=== PATIENT | male | born 1970 | race Caucasian/White ===

== ENCOUNTER 2023-07-03 07:45 | Emergency (ER) | payer MEDICAID, SELFPAY ==
[2023-07-03 07:46] VITALS: BP 138/99; PULSE 64; RESP 16; TEMP 36.6; O2SAT 98; BMI 29.6
--- NOTE | 2023-07-03 07:49 | EKG12_ITS ---
Test Reason : CP Blood Pressure : / mmHG Vent. Rate : 063 BPM Atrial Rate : 063 BPM P-R Int : 182 ms QRS Dur : 084 ms QT Int : 402 ms P-R-T Axes : 059 024 029 degrees QTc Int : 411 ms Poor data quality, interpretation may be adversely affected Normal sinus rhythm Normal ECG Confirmed by MILLICENT STEELE, ANA PAULA ([id number]), film editor supervisor TOM DEL VALLE ([id number]) on 07/04/2023 9:55:54 AM Referred By: CLARISSE Confirmed By:ANA PAULA RICKS MD
--- NOTE | 2023-07-03 08:00 | RAD_ITS ---
STUDY: X-RAY CHEST REASON FOR EXAM: Male, 52 years old. Right-sided chest pain with pleuritic component TECHNIQUE: PA and lateral views of the chest. COMPARISON: None. FINDINGS: EKG electrodes are seen. There is hyperinflation of the lungs consistent with chronic obstructive lung disease (COPD). There is no demonstrated pleural abnormality. Normal size heart. Normal mediastinum and steve. Normal visualized pulmonary arteries. Normal visualized aortic arch and descending thoracic aorta. Normal visualized thoracic spine. Normal visualized ribs, clavicles, and shoulders. There is no demonstrated abnormality of the visualized soft tissue structures of the upper abdomen. RAD/Chest PA and Lateral IMPRESSION: Hyperinflation. The lungs are clear. Electronically Signed: Scott Arana MD at 8:24 EDT ,
[2023-07-03 08:04] LABS: Absolute Lymphocyte Count 2.35 X10^3/uL (0.83-4.51); Absolute Neutrophil Count 3.7 X10^3/uL (2.0-7.7); Basophil# 0.05 X10^3/uL; Basophil% 0.7 % (0-1); Eosinophil# 0.28 X10^3/uL; Hemoglobin 14.5 g/dL (13.0-16.5); Lymphocyte # 2.35 X10^3/ul (0.83-4.51); Lymphocyte % 33.3 % (19-41); Mean Corp Hgb Conc 33.7 g/dL (32-36); Mean Corpuscular Hgb 31.5 pg (27.0-32.0); Mean Corpuscular Volume 93.5 fL (80-94); Mean Platelet Vol. 10.5 fl (6.2-12.0); Monocyte# 0.67 X10^3/uL; Monocyte% 9.5 % (0-10); NRBC Flagged by Analyzer 0 % (0-5); Neutrophil # 3.68 X10^3/uL (2.7-7.7); Neutrophil % 52.2 % (47-70); Platelet Count 210 K/mm3 (150-450); RBC Distribution Width CV 12.9 % (11.6-14.6); White Blood Count 7.1 K/mm3 (4.4-11.0)
[2023-07-03 08:15] LABS: D-Dimer Quantitative (DVT/PE) < 0.27 FEU/ug/m (0.27-0.49)
[2023-07-03 08:22] LABS: Anion Gap 2 (5-15); BUN 26 mg/dL (7-18); BUN/Creat Ratio 15.8 RATIO (10-20); Calcium,Total 9.1 mg/dL (8.5-10.1); Chloride 105 mmol/L (98-107); Creatinine, Serum 1.65 mg/dL (0.70-1.30); EST Glomerular Filtration Rate 47 mL/min (>60); Est Glom Filt Rate - Afr Amer 57 mL/min (>60); Estimated Creatinine Clearance 52.37 ml/min; Glucose 108 mg/dL (74-106); Potassium 3.8 mmol/L (3.5-5.1); Sodium Level 138 mmol/L (136-145); Troponin-I HS 8 pg/mL (3.0-78.0)
[2023-07-03 08:30] VITALS: BP 134/92; PULSE 57; RESP 16; O2SAT 99
--- NOTE | 2023-07-03 09:19 | EDS_ITS ---
HPI History of Present Illness Chief Complaint: Chest Pain Detail of Chief Complaint: Right-sided chest pain, which patient localizes to the right parasternal ar Informant: patient Onset/Context/Timing Onset: Yesterday (Did not feel well and was not able to swim as many laps as he normally does.) Activity at onset: sudden Timing: Continuous Quality: Positive for Aching Location: Right Parasternal Current Severity: Mild Maximum Severity: Moderate Worsened By: Nothing Relieved By: Nothing and - Associated Symptoms: Positive for - (Fatigued and not as much energy); Negative for Nausea, Diaphoresis, Dyspnea, Cough, Fever, Lightheadedness, Acid Reflux or Palpitations Narrative Narrative: Patient is a 52-year-old male who presents with right parasternal discomfort. Started yesterday. Has been lasting for hours. Nothing makes the pain better or worse. He has no known history of coronary disease. He states he exercises on a regular basis. He states he does not eat healthy, however. He denies fever, chills night sweats. He denies pleuritic component. He denies history of PE or DVT. He denies leg pain, swelling or discoloration. He denies symptoms of claudication. There is no family history of coronary disease at young age. He does report a pleuritic component. He does have history of reflux. He is on Prilosec. He denies black or maroon- colored stool. He denies radiation of pain. Prior Similar Symptoms: No Recent Illness/Hospitalization: No CVD Risk Factors: Negative for Hypertension, Diabetes, Hypercholesterolemia, Family History 1' </=55 or Smoking PE Risk Factors: Negative for Recent Travel/Surgery, Recent Immobilization, Prior DVT or PE, Cancer or OCP + Smoking + >/=35 TAD Risk Factors: Negative for Marfan's Syndrome, Hypertension or Family History PFSH PFSH Medical History no medical history no medical history Home Medications naproxen 500 mg tablet 500 mg PO BID #14 tabs 07/03/23 [Rx Last Taken Unknown] Allergy/AdvReac Type Severity Reaction Status Date / Time No Known Allergies Allergy Verified 07/03/23 07:47 Family History no significant family his no significant family history Surgical History no surgical history no surgical history Social History (Updated 07/03/23 @ 09:[address] Benny Ferguson MD) household members: spouse and children Smoking Status: Former smoker ROS ROS ED Constitutional Constitutional ED: Denies chills, fever(s), subjective, sweats or weight loss Eyes Eyes: Reports none ENT ENT ED: Denies ear pain, rhinorrhea or sore throat Cardiovascular Cardiovascular: Reports as per HPI Respiratory/Chest Respiratory/Chest: Denies cough, dyspnea or dyspnea on exertion Gastrointestinal Gastrointestinal: Denies abdominal pain, nausea or vomiting Musculoskeletal Musculoskeletal: Denies arthralgias, back pain, myalgias or neck pain Integumentary Denies abscess, Abrasions or rash Neurologic Neurologic: Denies headache(s), paresthesias or weakness Endocrine Endocrinology: Denies cold intolerance or heat intolerance Hematologic/Lymphatic Hematologic/Lymphatic: Denies easy bleeding or easy bruising EXAM Physical Exam Const Vital Signs: 07/03/23 07:46 07/03/23 08:30 Temperature 97.9 F Temperature Source Temporal Pulse Rate 64 57 L Respiratory Rate 16 16 Blood Pressure 138/99 H 134/92 H Blood Pressure Mean 112 106 Pulse Ox 98 99 Oxygen Delivery Method Room Air Room Air Positive well nourished and well developed General Appearance ED: well developed and NAD HEENT Reports TM's clear and moist mucous membranes normocephalic and atraumatic Tympanic Membrane ED: Yes TM's clear Eyes PERRL and EOMs intact bilaterally Neck no lymphadenopathy, supple and no JVD Chest Wall inspection of chest normal and palpation of chest normal Resp normal respiratory effort and clear to auscultation bilaterally Cardio regular rate, regular rhythm, S1 normal heart sound, S2 normal heart sound and no murmurs GI normal to inspection, nondistended, normoactive bowel sounds, soft to palpation, non-tender, non-distended and no masses; Negative for hepatosplenomegaly Back/Spine no CVA tenderness and no thoracic nor lumbar tenderness Extremity normal to inspection Extremity Narrative: There is no asymmetry, swelling, discoloration, leg vein distention, palpable cords or tenderness along the distribution of the deep venous system. Neuro oriented x3, CN's II-XII intact bilaterally, no sensory deficits noted and gait normal Sensorium / Orientation: awake Psych mental status grossly normal Skin no rashes or lesions noted and no wounds Heart Score History: Slightly/Non-Suspicious ECG: Normal Age: >45 - <65 years Risk Factors: No Risk Factors Troponin: </= Normal Limit Score: 1 MDM MDM MDM Narrative Medical decision making narrative: Patient resents with chest pain that has pleuritic component. Need to rule out cardiac versus pulmonary etiology and specifically pulmonary embolus. Will obtain EKG, chest x-ray and appropriate blood work. This may also represent GERD. History & Record Review Discussion w/independent historian: Patient Additional record(s) reviewed:: No prior records Lab Data Attestation: I reviewed the patient's lab results. Lab results narrative: BBC is unremarkable. BMP is unremarkable. First troponin with hours of pain is normal. D-dimer is less than 0.27. Labs: Laboratory Results - last 24 hr 07/03/23 07:55 WBC 7.1 RBC 4.60 Hgb 14.5 Hct 43.0 MCV 93.5 MCH 31.5 MCHC 33.7 RDW Std Deviation 44.0 H RDW Coeff of Brayden 12.9 Plt Count 210 MPV 10.5 Immature Gran % (Auto) 0.300 Neut % (Auto) 52.2 Lymph % (Auto) 33.3 [place] % (Auto) 9.5 Eos % (Auto) 4.0 Baso % (Auto) 0.7 Absolute Neuts (auto) 3.7 Absolute Lymphs (auto) 2.35 Nucleated RBC % 0 D-Dimer Quant (PE/DVT) < 0.27 L Sodium 138 Potassium 3.8 Chloride 105 Carbon Dioxide 31.0 Anion Gap 2 L BUN 26 H Creatinine 1.65 H Estim Creat Clear Calc 52.37 Est GFR (MDRD) Af Amer 57 L Est GFR (MDRD) Non-Af 47 L BUN/Creatinine Ratio 15.8 Glucose 108 H Calcium 9.1 Troponin I High Sens 8 Radiography Chest X-Ray - ED: 2 View and Read by ED Physician (2 view chest x-ray reveals normal cardiac silhouette and and size. There is slight hyperaeration. There is no infiltrate, effusion or evidence of pneumothorax. Osseous structures are unremarkable. This was independently reviewed interpreted by me.) Diagnostic Testing: Clinical Impression(s) from Imaging Studies Chest X-Ray 07/03/23 08:00 IMPRESSION: Hyperinflation. The lungs are clear. 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 Patient was discharged home. Since his has pleuritic component will prescribe NSAIDs. Discharge Plan Triage Chief Complaint: Chest Pain ED Provider: Benny Ferguson Dx/Rx/DC Orders Clinical Impression: Chest pain, pleuritic, Right-sided chest pain Instructions: ED Pleurisy Prescriptions: New naproxen 500 mg tablet 500 mg PO BID Qty: 14 0RF Primary Care Provider: Care Physician,No Primary Referrals: Care Physician,No Primary [Primary Care Provider] - Disposition Disposition: Home, Self Care
[2023-07-03 09:45] VITALS: BP 148/68; PULSE 78; RESP 16; O2SAT 100
== END 2023-07-03 09:46 | disposition home or self-care (01) ==
PROVIDERS: Emergency Provider Emergency Medicine; Visit Provider Emergency Medicine
DX: R07.81 Pleurodynia (principal); K21.9 Gastro-esophageal reflux disease without esophagitis; Z87.891 Personal history of nicotine dependence
CPT/HCPCS: 71046; 80048; 84484; 85025; 85379; 93005; 99284; A4216

== ENCOUNTER → 2023-10-09 | Outpatient (CLI) | payer MEDICAID, SELFPAY ==
--- NOTE | 2023-10-09 12:37 | STE_ITS ---
Reason For Study: Fatigue; Exercise Intolerance Stress Results Protocol: Lobo Protocol Maximum Predicted HR: 168 bpm Target HR: 143 bpm % Maximum Predicted HR: 79 % DurationHeart Rate Stage (mm:ss) (bpm) BP Comment Baseline 62 118/70No Chest Pain Lobo Protocol Stage I 3:00 84 122/72No Chest Pain Lobo Protocol Stage II 3:00 91 124/70No Chest Pain Lobo Protocol Stage III 3:00 116 130/72No Chest Pain; Mild Dyspnea Lobo Protocol Stage IV 2:19 133 146/70No Chest Pain; Moderate Dyspnea Recovery 77 122/70No Chest Pain; No Dyspnea Stress Duration: 11:19 mm:ss Maximum Stress HR: 133 bpm METS: 13 Baseline Echocardiogram Findings The estimated ejection fraction is 60 %. EF is greater than 75%. Stress Echo Wall motion Data Resting WM Intermediate WM Stress WM Resting Wall Motion Wall Motion Stress No regional wall motion No regional wall motion abnormalities noted. abnormalities noted. EKG Data The baseline ECG displays normal sinus rhythm. No significant EKG changes of ischemia. Symptoms with Stress The patient experinced No chest pain . ECHO/Stress Test Echo w/o Contrast Interpretation Summary The estimated ejection fraction is 60 %. Stress echo is negative for exercise-induced chest pain or EKG changes or echoc ardiographic changes of ischemia. Functional capacity is excellent for age Ordering Physician: Flavio Lester Referring Physician: Flavio Lester Performed By: Angela Woodruff RCS
== END | disposition home or self-care (01) ==
LOC: CVS 12:34
DX: R06.09 Other forms of dyspnea (principal); R68.89 Other general symptoms and signs; I95.0 Idiopathic hypotension; R53.82 Chronic fatigue, unspecified; G47.33 Obstructive sleep apnea (adult) (pediatric)
CPT/HCPCS: 93017; 93350